=== PATIENT | female | born 1985 | race Caucasian/White ===

== ENCOUNTER 2017-12-11 23:13 | Emergency (ER) | payer MEDICAID ==
[2017-12-12 01:57] LABS: ADD MAN DIFF? NO
[2017-12-12 01:59] LABS: BASOPHILS % 0.2 % (0.0-2.0); EOSINOPHILS # 0.4 10^3/ul (0.0-0.5); EOSINOPHILS % 4.5 % (0.0-7.0); HEMATOCRIT 34.2 % (37.0-47.0); HEMOGLOBIN 10.5 g/dl (12.0-16.0); LYMPHOCYTES # 2.4 10^3/ul (0.8-2.9); LYMPHOCYTES % 26.4 % (15.0-51.0); MEAN CORPUSCULAR HEMOGLOBIN 22.9 pg (29.0-33.0); MEAN CORPUSCULAR HGB CONC 30.7 g/dl (32.0-37.0); MEAN CORPUSCULAR VOLUME 74.5 fl (82.0-101.0); MONOCYTE # 0.9 10^3/ul (0.3-0.9); MONOCYTES % 9.5 % (0.0-11.0); NEUTROPHIL # 5.3 10^3/ul (1.6-7.5); NEUTROPHILS % 59.2 % (39.0-77.0); PLATELET COUNT 260 10^3/UL (140-415); RED BLOOD COUNT 4.59 10^6/ul (4.20-5.40); RED CELL DISTRIBUTION WIDTH 16.3 % (11.5-14.5)
[2017-12-12] MEDS: ACETAMINOPHEN 500 MG TAB PO (02:08)
[2017-12-12 02:11] LABS: ADD UMIC YES; UR ASCORBIC ACID NEGATIVE (NEGATIVE); UR BACTERIA FEW /HPF (NONE SEEN); UR BILIRUBIN (Dip) NEGATIVE (NEGATIVE); UR BLOOD (Dip) 2+ mg/dL (NEGATIVE); UR CLARITY SLIGHTLY CLOUDY (CLEAR); UR COLOR YELLOW (YELLOW); UR GLUCOSE (Dip) NEGATIVE (NEGATIVE); UR KETONES (Dip) NEGATIVE (NEGATIVE); UR LEUKOCYTE ESTERASE (Dip) 1+ Leu/ul (NEGATIVE); UR MUCUS FEW /HPF (NONE SEEN); UR NITRITE (Dip) NEGATIVE (NEGATIVE); UR RBC 1 /HPF (0-5); UR SPECIFIC GRAVITY (Dip) 1.019 (1.003-1.030); UR SQUAMOUS EPITHELIAL CELL FEW /HPF (FEW); UR TOTAL PROTEIN (Dip) NEGATIVE (NEGATIVE); UR UROBILINOGEN (Dip) 1+ mg/dL (NEGATIVE); UR WBC 7 /HPF (0-5)
[2017-12-12 02:33] LABS: ALANINE AMINOTRANSFERASE 16 IU/L (13-69); ALBUMIN 4.3 g/dl (3.3-4.9); ALBUMIN/GLOBULIN RATIO 1.22; ALKALINE PHOSPHATASE 83 IU/L (42-121); AMYLASE 47 U/L (11-123); ANION GAP 14 (8-16); ASPARTATE AMINO TRANSFERASE 15 IU/L (15-46); BILIRUBIN,INDIRECT 0.3 mg/dl (0-1.1); BILIRUBIN,TOTAL 0.3 mg/dl (0.2-1.3); BLOOD UREA NITROGEN 10 mg/dl (7-20); CALCIUM 9.4 mg/dl (8.4-10.2); CARBON DIOXIDE 25 mmol/L (21-31); CHLORIDE 107 mmol/L (97-110); CREATININE 0.55 mg/dl (0.44-1.00); GLUCOSE 93 mg/dl (70-220); LIPASE 102 U/L (23-300); SODIUM 142 mmol/L (135-144); TOTAL PROTEIN 7.8 g/dl (6.1-8.1)
== END 2017-12-12 03:48 | disposition home or self-care (01) ==
LOC: FTE 23:13
DX: O20.9 Hemorrhage in early pregnancy, unspecified (principal); O23.41 Unspecified infection of urinary tract in pregnancy, first trimester; R10.2 Pelvic and perineal pain; Z3A.01 Less than 8 weeks gestation of pregnancy
CPT/HCPCS: 76801; 76817; 80053; 81001; 82150; 83690; 84702; 85025; 86900; 86901; 87086; 99284-25

== ENCOUNTER 2017-12-15 12:31 | Emergency (ER) | payer MEDICAID ==
[2017-12-15 13:09] LABS: ADD MAN DIFF? NO
[2017-12-15 13:10] LABS: BASOPHILS % 0.2 % (0.0-2.0); EOSINOPHILS # 0.3 10^3/ul (0.0-0.5); HEMOGLOBIN 11.1 g/dl (12.0-16.0); LYMPHOCYTES # 1.3 10^3/ul (0.8-2.9); LYMPHOCYTES % 9.1 % (15.0-51.0); MEAN CORPUSCULAR HEMOGLOBIN 22.9 pg (29.0-33.0); MEAN CORPUSCULAR HGB CONC 30.8 g/dl (32.0-37.0); MEAN CORPUSCULAR VOLUME 74.2 fl (82.0-101.0); MEAN PLATELET VOLUME 10.9 fl (7.4-10.4); MONOCYTE # 0.8 10^3/ul (0.3-0.9); MONOCYTES % 5.7 % (0.0-11.0); NEUTROPHIL # 11.8 10^3/ul (1.6-7.5); NEUTROPHILS % 82.7 % (39.0-77.0); PLATELET COUNT 246 10^3/UL (140-415); RED BLOOD COUNT 4.85 10^6/ul (4.20-5.40); RED CELL DISTRIBUTION WIDTH 16.4 % (11.5-14.5)
[2017-12-15 13:10] LABS: WHITE BLOOD COUNT 14.3 10^3/ul (4.8-10.8)
[2017-12-15 13:28] LABS: ADD UMIC YES; UR CLARITY BLOODY (CLEAR); UR COLOR RED (YELLOW); URINE SPECIFIC GRAVITY (Dip) <1.005 (1.003-1.030)
[2017-12-15 13:29] LABS: UR BLOOD (Dip) 3+ mg/dL (NEGATIVE); UR GLUCOSE (Dip) 1+ mg/dL (NEGATIVE); UR KETONES (Dip) 2+ mg/dL (NEGATIVE); UR TOTAL PROTEIN (Dip) 3+ mg/dl (NEGATIVE); URINE PH (Dip) 8.5 (5.0-9.0)
[2017-12-15 13:30] LABS: UR LEUKOCYTE ESTERASE (Dip) 3+ Leu/ul (NEGATIVE); UR NITRITE (Dip) POSITIVE (NEGATIVE); UR UROBILINOGEN (Dip) >8.0 E.U./dL mg/dL (NEGATIVE); URINE RBCS >200 /HPF (0)
[2017-12-15 13:46] LABS: UR BACTERIA FEW /HPF (NONE SEEN)
[2017-12-15 13:49] LABS: UR BILIRUBIN (Dip) NEGATIVE (NEGATIVE)
== END 2017-12-15 14:32 | disposition home or self-care (01) ==
LOC: FTE 12:31
DX: O02.1 Missed abortion (principal); O23.11 Infections of bladder in pregnancy, first trimester
CPT/HCPCS: 36415; 76801; 76817; 81001; 84702; 85025; 86900; 86901; 87086; 99284-25

== ENCOUNTER 2018-11-24 19:21 | Emergency (ER) | payer SELFPAY, MEDICAID ==
[2018-11-24] MEDS: ACETAMINOPHEN 500 MG TAB PO (21:06)
== END 2018-11-24 22:54 | disposition home or self-care (01) ==
LOC: FTE 22:54
DX: O26.892 Other specified pregnancy related conditions, second trimester (principal); R10.9 Unspecified abdominal pain; V69.50XA Passenger in heavy transport vehicle injured in collision with unspecified motor vehicles in traffic accident, initial encounter; Z3A.17 17 weeks gestation of pregnancy
CPT/HCPCS: 76805; 99284-25